=== PATIENT | female | born 1960 | race Caucasian/White ===

== ENCOUNTER 2019-02-04 14:08 | Outpatient (CLI) | payer BC ==
[2019-02-04 14:53] LABS: eGFR (Non-African) > 60
== END 2019-02-04 14:10 ==
LOC: LAB 14:08
PROVIDERS: ATTEND Family Medicine
DX: E03.9 Hypothyroidism, unspecified (principal); E11.9 Type 2 diabetes mellitus without complications
CPT/HCPCS: 36415; 80053; 80061; 83036; 84443

== ENCOUNTER 2019-02-11 15:42 | Outpatient (CLI) | payer BC ==
--- NOTE | 2019-02-11 16:27 | Diagnostic Imaging Report ---
YANETH PRADO [facility] [id number] [facility] [address] [address] Report Submission Date: Feb 11, 2019 4:02:50 PM CDT Patient Study Name: MARY COFFMAN Date: Feb 11, 2019 3:46:54 PM CDT Modality Type: DX Gender: F Description: FOOT 3 VIEWS OR MORE : 62 Institution: [facility] Physician: YANETH PRADO EXAMINATION: FOOT 3 VIEWS OR MORE HISTORY: rt foot wieght bearing images were taken (Hx) COMPARISON: None FINDINGS: The osseous structures are intact and well aligned without acute fracture or dislocation. A calcaneal spur is noted. There is a 2-part os peroneum. The joint spaces are preserved. Bone density is normal. No soft tissue swelling is seen. IMPRESSION: Calcaneal spur without acute fracture or dislocation identified. Electronically signed on Feb 11, 2019 4:02:50 PM CDT by: Doc COCHRAN
== END 2019-02-11 15:47 | disposition home or self-care (01) ==
LOC: RAD 15:42
PROVIDERS: ATTEND Podiatrist Foot & Ankle Surgery
DX: M77.31 Calcaneal spur, right foot (principal)
CPT/HCPCS: 73630

== ENCOUNTER 2019-08-26 15:18 | Outpatient (CLI) | payer BC | END 2019-08-26 15:23 | LOC: LAB 15:18 | PROVIDERS: ATTEND Family Medicine | DX: E11.9 Type 2 diabetes mellitus without complications (principal) | CPT/HCPCS: 36415; 83036 ==